=== PATIENT | female | born 1970 | race Caucasian/White ===

== ENCOUNTER 2017-03-05 10:04 | Outpatient (CLI) | payer OTHER ==
[2014-07-30 09:51] VITALS: BMI 30.1
[~2017-03-05 10:04] MED LIST: AMBIEN10 MG PO; NASACORT AQ16.5 GM NASAL; PRILOSEC20 MG PO; PROMETRIUM200 MG PO
== END 2017-03-05 12:52 ==
LOC: D.MAMMO 10:04
DX: Z12.31 Encounter for screening mammogram for malignant neoplasm of breast (principal)

== ENCOUNTER 2019-11-21 08:00 | Outpatient (CLI) | payer OTHER ==
[2014-07-30 09:51] VITALS: BMI 30.1
== END 2019-11-21 23:59 | disposition home or self-care (01) ==
LOC: D.MAMMO 08:00
PROVIDERS: ATTEND Family Medicine
DX: Z12.31 Encounter for screening mammogram for malignant neoplasm of breast (principal)

== ENCOUNTER 2020-02-07 09:00 | Outpatient (CLI) | payer OTHER ==
[2014-07-30 09:51] VITALS: BMI 30.1
== END 2020-02-07 10:00 | disposition home or self-care (01) ==
LOC: D.MAMMO 09:00
PROVIDERS: ATTEND Family Medicine
DX: R92.8 Other abnormal and inconclusive findings on diagnostic imaging of breast (principal)